=== PATIENT | female | born 1965 | race Caucasian/White ===

== ENCOUNTER 2023-08-03 18:24 | Inpatient (IN) | payer BC, MEDICARE, SELFPAY ==
--- NOTE | ~2023-08-03 | XR_ITS ---
EXAMINATION: XR CHEST CLINICAL INFORMATION: Chest pain COMPARISON: None available. TECHNIQUE: 2 views of the chest were obtained. FINDINGS: No significant abnormality is noted involving the heart, lungs, mediastinum, bony thorax or soft tissues. XR/XR chest 2V IMPRESSION: Unremarkable examination.
[2023-08-03 18:39] VITALS: BP 112/59; BP 115/58; PULSE 103; PULSE 98; RESP 20; TEMP 36.8; O2SAT 97; O2SAT 98; BMI 27.1
--- NOTE | 2023-08-03 18:39 | ECG_ITS ---
Test Reason : CHEST PAIN Blood Pressure : / mmHG Vent. Rate : 101 BPM Atrial Rate : 101 BPM P-R Int : 142 ms QRS Dur : 082 ms QT Int : 338 ms P-R-T Axes : 056 057 052 degrees QTc Int : 438 ms Sinus tachycardia Low voltage QRS Borderline ECG No previous ECGs available Referred By: Zoie Park Electronically Signed By:ABIGAIL CHAVEZ
--- NOTE | 2023-08-03 18:39 | ED_ITS ---
HPI - Chest Pain General Chief Complaint: Arrhythmia/Palpitations Stated Complaint: CHEST PAIN Time Seen by Provider: 08/03/23 18:25 Source: patient and EMS Mode of arrival: EMS Limitations: no limitations History of Present Illness HPI narrative: Patient is a 58-year-old female who presents to the emergency department via EMS for evaluation. She presents with her friend at bedside. Patient went out to dinner with her friend at approximately 17:00. Upon walking in the decided to sit at a high top table, once patient sat up on the stool, she reported feeling unwell; lightheadedness, dizziness, and feeling as though she was going to pass out. She was experiencing pain in her jaw described as a tightness. She reports that she ?got onto fast?. But she continued to have palpitations and her friend reported that she appeared very pale in color. Her friend placed her apple watch onto the patient's wrist, and reports that her heart rate was reading in the 230s. EMS was ultimately called, she was found to be in SVT, adenosine 6 mg intravenously was administered 4 pulse 230, with improvement down to 100. Currently she denies any physical complaints, she reports that she feels well and would like to be discharged home. She does have a past medical history of C4-C6 fracture with surgical repair in 2013 after a sledding accident, and 4 years ago she fell from an 8 ft scaffolding sustained a TBI, which has left her with the results in dysphasia, per patient and her friend her speech is currently at baseline. Related Data Allergies Allergy/AdvReac Type Severity Reaction Status Date / Time bee pollen [bee stings] Allergy Unknown Verified 08/03/23 18:44 Sulfa (Sulfonamide Allergy Unknown Verified 08/03/23 18:44 Antibiotics) Review of Systems 2 Review of Systems: Yes all other systems are reviewed and are negative COUNTS INCLUDE 234 BEDS AT THE [facility] Past Medical History Attestation statement: The following information was validated with the patient. Source: old records reviewed Medical History (Updated 08/04/23 @ 02:11 by Zoie Park CNP) PTSD (post-traumatic stress disorder) TBI (traumatic brain injury) Social History Social History Patient Tobacco Use Status: Former Tobacco user Smoked in Last 30 Days: No Use of substances other than those prescribed or required for medical reasons: No Advance Directives: No Advance Directives Information Provided: No Do you have a plan to hurt others: No Plan Physical Exam 2 Vital Signs: Vital Signs: Last Vital Signs Temp 97.7 F 08/04/23 01:29 Pulse 73 08/04/23 01:29 Resp 19 08/04/23 01:29 BP 109/57 L 08/04/23 01:29 Pulse Ox 99 08/04/23 01:29 O2 Del Method Room Air 08/04/23 01:29 BMI result Body Mass Index 27.1 Appearance: Alert.?Oriented to person, place and time. No acute distress.?Normal affect. Eyes: Pupils equal, round and reactive to light.? ENT: Pharynx normal.?? Neck: Normal inspection.? Neck supple.?? CVS: Heart sounds normal. Normal heart rate and rhythm.? Pulses normal.?? Respiratory: No respiratory distress.? Lung sounds clear to auscultation bilaterally?? Abdomen: Soft and non-tender. Normoactive bowel sounds. Skin: Skin warm and dry.? Normal skin color.? Extremities: No lower extremity edema.? No calf ttp? Neuro: Moves all extremities spontaneously. Sensation intact bilaterally. CN II- XII intact. No focal neuro deficits. Ambulates with normal steady gait. Course Reevaluation(s) Reevaluation #1: Received call from lab regarding critical troponin 229.6. I suspect that this is a demand elevation given episode of SVT. However Cardiology was consulted, spoke with Dr. Davis who recommends admission for observation. Patient was made aware of this recommendation. Accepted for admission by hospitalist, Dr. Alex Cruz to medicine service Time: 22:19 Medications Administered Generic Name Dose Route Start Last Admin Trade Name Freq PRN Reason Stop Dose Admin Sodium Chloride 3 ml 08/04/23 00:00 08/04/23 01:04 0.9 % Sodium Chloride Flush 3 Ml Syringe IVFLUSH Not Given QSHIFT [facility] Medical Decision Making Medical Decision Making [facility] Narrative: Patient is a 58-year-old female with past medical history of anxiety, PTSD cervical spine fracture, TBI presenting to emergency department for evaluation after presyncopal episode with palpitations jaw pain, found to be in SVT by EMS, for which adenosine 6 mg intravenously was administered with resolution and she returned back to a sinus rhythm. Currently she denies any physical complaints, she is requesting to be discharged home. She is amenable to having basic workup obtained. Her physical exam at this time is benign. Differential Diagnosis Differential Diagnoses: The differential diagnosis associated with the presentation includes (Tachyarrhythmia, SVT, WPW, ACS) Admission/Observation Consideration of admission/observation: Escalation of care including admission/observation considered (See narrative above in course narrative for further detail) Consult Healthcare Provider Management of the patient was discussed with: Hospitalist and Parks Recreation Coordinator Lab Data MDM Lab Attestation statement: I reviewed the patient's lab results. CBC reveals very mild leukopenia 4.6, hemoglobin 12.9 hematocrit 36.1, no thrombocytopenia. No evidence coagulopathy. No electrolyte derangement. No SOY. No evidence of acute CHF BNP within normal range. High sensitive troponin at a detectable level of 13.6 but within normal range. Urinalysis is without evidence of infection. Viral testing is negative. 08/03/23 19:10 08/03/23 19:10 Labs: Lab Results 08/03/23 08/03/23 08/03/23 Range/Units 19:10 19:11 19:26 WBC 4.6 L (4.8-10.8) X10*3/uL RBC 3.93 L (4.20-5.50) X10*6/uL Hgb 12.9 (12.0-16.0) g/dl Hct 36.1 L (37.0-47.0) % MCV 91.9 (80.0-98.0) fL MCH 32.8 (27.0-33.0) pg MCHC 35.7 H (31.0-35.0) g/dl RDW 12.0 (11.0-16.0) % Plt Count 243 (160-400) X10*3/uL MPV 8.5 L (9.4-12.3) fL Immature Gran % (Auto) 0.2 (0.0-0.4) % Neut % (Auto) 46.8 (45-73) % Lymph % (Auto) 44.3 H (20-40) % Warren % (Auto) 6.1 (2-11) % Eos % (Auto) 1.7 (0-4) % Baso % (Auto) 0.9 (0-2) % Lymph # (Auto) 2.0 (1.2-4.9) X10*3/uL Warren # (Auto) 0.3 (0.1-1.2) X10*3/uL Eos # (Auto) 0.1 (0.0-0.4) X10*3/uL Baso # (Auto) 0.0 (0.0-0.2) X10*3/uL Abs Immat Gran (auto) 0.01 (0.00-0.03) X10*3/uL Absolute Neuts (auto) 2.2 (2.0-8.3) x10*3/uL Absolute Nucleated RBC 0.000 (0.0-0.012) X10*3/uL Nucleated RBC % (auto) 0.0 (0.0-0.2) /100WBC PT 12.3 (11.1-13.3) SEC INR 1.0 (0.9-1.1) Sodium 138 (135-145) mmol/L Potassium 3.8 (3.3-5.1) mmol/L Chloride 104 (96-108) mmol/L Carbon Dioxide 20 L (22-29) mmol/L Anion Gap 18 (12-20) BUN 8 L (9-16) mg/dL Creatinine 0.81 (0.5-1.4) mg/dL Estim Creat Clear Calc 68.9 Estimated GFR > 60 Random Glucose 81 (60-115) mg/dL Calcium 9.6 (8.4-10.2) mg/dL Magnesium 1.8 (1.6-2.6) mg/dL Total Bilirubin 0.8 (0.0-1.0) mg/dL AST 20 (5-31) U/L ALT 13 (0-31) U/L Alkaline Phosphatase 57 (39-117) U/L Troponin I High Sens 13.6 (<3.5-17.0) ng/L B-Natriuretic Peptide 22 (<100) pg/mL Total Protein 6.6 (6.5-8.0) g/dL Albumin 3.9 (3.5-5.0) g/dL Lipase 43 (8-78) U/L TSH 1.97 (0.32-4.0) uIU/mL Urine Color Yellow Urine Appearance Clear Urine pH 7.0 (5.0-9.0) Ur Specific Bowie <= 1.005 (1.005-1.025) Urine Protein Negative (Neg-Trace) mg/dL Urine Glucose (UA) Negative (Negative) mg/dL Urine Ketones Negative (Negative) mg/dL Urine Blood Trace H (Negative) Urine Nitrite Negative (Negative) Ur Leukocyte Esterase Moderate (2+) H (Negative) Urine RBC 0-2 (0-2) /HPF Urine WBC 0-5 (0-5) /HPF Ur Squamous Epith Cells 0-2 (0-2) /HPF Urine Bacteria None Seen (None Seen) Hyaline Casts 0-2 (0-2) /LPF Urine Opiates Screen Not Detected (Not Detect) Ur Buprenorphine Scrn Not Detected (Not Detect) ng/mL Ur Oxycodone Screen Not Detected (Not Detect) ng/mL Urine Methadone Screen Not Detected (Not Detect) ng/mL Urine Fentanyl Screen Not Detected (Not Detect) Ur Barbiturates Screen Not Detected (Not Detect) Ur Phencyclidine Scrn Not Detected (Not Detect) Ur Amphetamines Screen Not Detected (Not Detect) U Benzodiazepines Scrn Not Detected (Not Detect) Urine Cocaine Screen Not Detected (Not Detect) U Marijuana (THC) Screen Not Detected (Not Detect) Influenza Type A (PCR) NEGATIVE (Negative) Influenza Type B (PCR) NEGATIVE (Negative) RSV RNA Qual (PCR) NEGATIVE (Negative) SARS-CoV-2 RNA (RT-PCR) NEGATIVE (Negative) 08/03/23 Range/Units 21:37 WBC (4.8-10.8) X10*3/uL RBC (4.20-5.50) X10*6/uL Hgb (12.0-16.0) g/dl Hct (37.0-47.0) % MCV (80.0-98.0) fL MCH (27.0-33.0) pg MCHC (31.0-35.0) g/dl RDW (11.0-16.0) % Plt Count (160-400) X10*3/uL MPV (9.4-12.3) fL Immature Gran % (Auto) (0.0-0.4) % Neut % (Auto) (45-73) % Lymph % (Auto) (20-40) % Warren % (Auto) (2-11) % Eos % (Auto) (0-4) % Baso % (Auto) (0-2) % Lymph # (Auto) (1.2-4.9) X10*3/uL Warren # (Auto) (0.1-1.2) X10*3/uL Eos # (Auto) (0.0-0.4) X10*3/uL Baso # (Auto) (0.0-0.2) X10*3/uL Abs Immat Gran (auto) (0.00-0.03) X10*3/uL Absolute Neuts (auto) (2.0-8.3) x10*3/uL Absolute Nucleated RBC (0.0-0.012) X10*3/uL Nucleated RBC % (auto) (0.0-0.2) /100WBC PT (11.1-13.3) SEC INR (0.9-1.1) Sodium (135-145) mmol/L Potassium (3.3-5.1) mmol/L Chloride (96-108) mmol/L Carbon Dioxide (22-29) mmol/L Anion Gap (12-20) BUN (9-16) mg/dL Creatinine (0.5-1.4) mg/dL Estim Creat Clear Calc Estimated GFR Random Glucose (60-115) mg/dL Calcium (8.4-10.2) mg/dL Magnesium (1.6-2.6) mg/dL Total Bilirubin (0.0-1.0) mg/dL AST (5-31) U/L ALT (0-31) U/L Alkaline Phosphatase (39-117) U/L Troponin I High Sens 229.6 H* D (<3.5-17.0) ng/L B-Natriuretic Peptide (<100) pg/mL Total Protein (6.5-8.0) g/dL Albumin (3.5-5.0) g/dL Lipase (8-78) U/L TSH (0.32-4.0) uIU/mL Urine Color Urine Appearance Urine pH (5.0-9.0) Ur Specific Bowie (1.005-1.025) Urine Protein (Neg-Trace) mg/dL Urine Glucose (UA) (Negative) mg/dL Urine Ketones (Negative) mg/dL Urine Blood (Negative) Urine Nitrite (Negative) Ur Leukocyte Esterase (Negative) Urine RBC (0-2) /HPF Urine WBC (0-5) /HPF Ur Squamous Epith Cells (0-2) /HPF Urine Bacteria (None Seen) Hyaline Casts (0-2) /LPF Urine Opiates Screen (Not Detect) Ur Buprenorphine Scrn (Not Detect) ng/mL Ur Oxycodone Screen (Not Detect) ng/mL Urine Methadone Screen (Not Detect) ng/mL Urine Fentanyl Screen (Not Detect) Ur Barbiturates Screen (Not Detect) Ur Phencyclidine Scrn (Not Detect) Ur Amphetamines Screen (Not Detect) U Benzodiazepines Scrn (Not Detect) Urine Cocaine Screen (Not Detect) U Marijuana (THC) Screen (Not Detect) Influenza Type A (PCR) (Negative) Influenza Type B (PCR) (Negative) RSV RNA Qual (PCR) (Negative) SARS-CoV-2 RNA (RT-PCR) (Negative) Independent Interpretation I performed an independent interpretation of an: EKG and Plain X-Ray (No infiltrates pleural effusion or pulmonary congestion) Interpretation: Rate: 101 Rhythm: Sinus tachycardia? Milton:? Normal Normal P waves.? Normal ELKIN.?? Normal QRS complex.?? ST T wave :??No ST elevation, no ST depression, no T-wave inversions qTC:438 prior studies:? None available for review The study has been interpreted contemporaneously by me. Radiology Impression Discussion of test interpretation with radiology: I have reviewed the radiologist's reading. Radiologist Impression: XR/XR chest 2V IMPRESSION: Unremarkable examination. Independent Historian Clinical information obtained from an independent historian. History obtained from or confirmed by: Friend (Present who assists with history as per HPI) and EMS Discharge Plan Discharge Clinical Impression: SVT (supraventricular tachycardia), Elevated troponin Patient Disposition: Admitted As Inpatient
[2023-08-03 19:14] LABS: MANUAL DIFF FLAG NO
[2023-08-03 19:22] LABS: Basophils Percent Auto 0.9 % (0-2); Eosinophils Absolute Auto 0.1 X10*3/uL (0.0-0.4); Eosinophils Percent Auto 1.7 % (0-4); Hematocrit 36.1 % (37.0-47.0); Hemoglobin 12.9 g/dl (12.0-16.0); Imm Gran Abs Auto 0.01 X10*3/uL (0.00-0.03); Imm Gran Pct Auto 0.2 % (0.0-0.4); Lymphocytes Percent Auto 44.3 % (20-40); Mean Corpuscular HGB Conc 35.7 g/dl (31.0-35.0); Mean Corpuscular Hemoglobin 32.8 pg (27.0-33.0); Mean Corpuscular Volume 91.9 fL (80.0-98.0); Mean Platelet Volume 8.5 fL (9.4-12.3); Monocytes Absolute Auto 0.3 X10*3/uL (0.1-1.2); Monocytes Percent Auto 6.1 % (2-11); Neutrophils Absolute Auto 2.2 x10*3/uL (2.0-8.3); Neutrophils Percent Auto 46.8 % (45-73); Platelet Count 243 X10*3/uL (160-400); Red Blood Count 3.93 X10*6/uL (4.20-5.50); White Blood Count 4.6 X10*3/uL (4.8-10.8)
[2023-08-03 19:23] VITALS: PULSE 102
[2023-08-03 19:23] LABS: Prothrombin Time 12.3 SEC (11.1-13.3)
--- NOTE | 2023-08-03 19:27 | PC.NURSE ---
Assumed care of the pt at 1900. Pt was assisted to wheelchair to go to the bathroom, pt provided a urine sample which was collected and sent to lab. Pt has no complaints at this time. Pt is on the field cane scaler helper with an 18g IV in place.
[2023-08-03 19:32] LABS: Alanine Aminotransferase 13 U/L (0-31); Albumin Level 3.9 g/dL (3.5-5.0); Alkaline Phosphatase 57 U/L (39-117); Anion Gap 18 (12-20); Aspartate Amino Transferase 20 U/L (5-31); Bilirubin Total 0.8 mg/dL (0.0-1.0); Blood Urea Nitrogen 8 mg/dL (9-16); Calcium 9.6 mg/dL (8.4-10.2); Carbon Dioxide 20 mmol/L (22-29); Chloride 104 mmol/L (96-108); Creatinine Clr Calc Pharmacy 68.9; Estimated Glomerular Filt Rate > 60; Glucose Random 81 mg/dL (60-115); Lipase 43 U/L (8-78); Magnesium 1.8 mg/dL (1.6-2.6); Potassium 3.8 mmol/L (3.3-5.1); Sodium 138 mmol/L (135-145); Total Protein 6.6 g/dL (6.5-8.0)
[2023-08-03 19:32] LABS: Appearance Urine Clear; Color Urine Yellow; Glucose Urine UA Negative (Negative); Leukocyte Esterase Urine Moderate (2+) (Negative); Nitrite Urine Negative (Negative); Specific Gravity - Urine <= 1.005 (1.005-1.025); UMIC TRIGGER UACC YES; Urine Blood Trace (Negative); Urine Ketones Negative (Negative); Urine Protein Negative (Neg-Trace)
[2023-08-03 19:40] LABS: Troponin-I High Sensitivity 13.6 ng/L (<3.5-17.0)
[2023-08-03 19:51] VITALS: PULSE 101; RESP 109; TEMP 36.8; O2SAT 99
[2023-08-03 19:52] LABS: Influenza A PCR NEGATIVE (Negative); Influenza B PCR NEGATIVE (Negative); Resp Syncy Virus RNA Qual PCR NEGATIVE (Negative); SARS COV2 PCR INHOUSE NEGATIVE (Negative)
[2023-08-03 20:02] LABS: B Type Natriuretic Peptide 22 pg/mL (<100)
[2023-08-03 20:06] LABS: Bacteria Urine None Seen (None Seen); Hyaline Casts Urine 0-2 /LPF (0-2); RBC Urine 0-2 /HPF (0-2); Squamous Epithelial Cell Urine 0-2 /HPF (0-2); WBC Urine 0-5 /HPF (0-5)
--- OUTSIDE RECORDS SUMMARY | 2023-08-03 20:24 | XMS_ITS | Continuity of Care Document ---
Author Organization [facility] Address [address] [place] [address]- Care Team Providers Care Photo Tube Assembler Name Role Phone Mookie Rivera DO Primary Care Physician [phone] Encounter [facility] Date(s): 10/17/19 - 12/07/19 [facility] [address] [place] [address]- [facility] Attending Physician: Michael ARREAGA, Darrius Galo Referring Physician: Mookie Rivera DO Allergies, Adverse Reactions, Alerts Substance Reaction Severity Status sulfa drugs Active Bee Stings Active Immunizations Given and Recorded Vaccine Date Status Refusal Reason tetanus/diphtheria/pertussis, acel(Tdap) 09/23/19 Given Medications BuPROpion By Mouth, 0 Refills, Maintenance, 07/08/17 10:02:53 EDT Start Date: 07/08/17 Status: Ordered Tramadol By Mouth, 0 Refills, Maintenance, 07/08/17 10:02:21 EDT Start Date: 07/08/17 Status: Ordered Xanax 0.25 mg oral tablet 0.25 mg, 1, tablet, By Mouth, 3 times a day, PRN, Refills 0, Maintenance, for anxiety, 07/08/17 10:02:32 EDT Start Date: 07/08/17 Status: Ordered Zofran 4 mg oral tablet 1 tablet = 4 mg, By Mouth, Every 8 hours, # 12 tablet, 0 Refills, Maintenance, 09/23/19 22:41:00 EDT, Tablet, [id number] Start Date: 09/23/19 Status: Ordered
--- OUTSIDE RECORDS SUMMARY | 2023-08-03 20:24 | XMS_ITS | Continuity of Care Document ---
Author Organization [facility] Address [address] [place] [address]- Care Team Providers Care Mirror Silverer Name Role Phone Mookie Rievra DO Graciela Primary Care Physician Encounter [facility] Date(s): 10/07/19 - 11/06/19 [facility] [address] [place] [address]- [facility] Allergies, Adverse Reactions, Alerts Substance Reaction Severity [...]
--- OUTSIDE RECORDS SUMMARY | 2023-08-03 20:24 | XMS_ITS | Continuity of Care Document ---
Author Organization [facility] Address [address] [place] [address]- Care Team Providers Care Cost Recovery Technician Name Role Phone Mookie Rivera DO Primary Care Physician Encounter [facility] Date(s): 10/16/19 - 12/21/19 [facility] [address] [place] [address]- [facility] Attending Physician: Blanca Ramirez Referring Physician: Mookie Rivera DO Allergies, Adverse [...]
--- OUTSIDE RECORDS SUMMARY | 2023-08-03 20:24 | XMS_ITS | Continuity of Care Document ---
Author Organization [facility] Address [address] [place] [address]- Care Team Providers Care Multi Share Program Coordinator Name Role Phone Mookie Rivera DO Primary Care Physician [place] [facility] [place](s[place] 10/17/19 - 12/21/19 [facility] [address] [place] [address]- [facility] Attending Physician: Blanca Ramirez Referring Physician: Mookie [...]
--- OUTSIDE RECORDS SUMMARY | 2023-08-03 20:24 | XMS_ITS | Continuity of Care Document ---
Author Organization [facility] Address [address] [place] [address]- Care Team Providers Care Cook Sauce Name Role Phone Miguel MEDEROS Mookie Owens Primary Care Physician Encounter [facility] Date(s): 11/21/19 - 12/21/19 [facility] [address] [place] [address]- [facility] Attending Physician: Dorian Rivas Admitting Physician: AdmtrDorian Referring Physician: AdmtrDorian Allergies, Adverse Reactions, Alerts Substance Reaction Severity [...]
--- OUTSIDE RECORDS SUMMARY | 2023-08-03 20:24 | XMS_ITS | Continuity of Care Document ---
Author Organization [facility] Address [address] [place] [address]- Care Team Providers Care Welder Production Line Gas Name Role Phone Miguel MEDEROS Mookie Owens Primary Care Physician [phone] Encounter [facility] Date(s): 10/17/19 - 11/16/19 [facility] [address] [place] [address]- [facility] Allergies, Adverse Reactions, Alerts Substance Reaction Severity [...]
--- OUTSIDE RECORDS SUMMARY | 2023-08-03 20:24 | XMS_ITS | Continuity of Care Document ---
Author Organization [facility] Address [address] [place] [address]- Care Team Providers Care Cathead Worker Name Role Phone Mookie Rivera DO Graciela Primary Care Physician Encounter [facility] Date(s): 09/23/19 - 09/24/[address] [address] [facility] Encounter Diagnosis Closed head injury(Final) - 09/24/19 Elbow laceration(Final) - 09/24/19 Discharge Disposition: A-D/C Home Attending Physician: Rohit Allan MD Admitting Physician: Rohit Allan MD Referring Physician: Not on Staff, Referring MD Allergies, Adverse Reactions, Alerts Substance Reaction Severity [...] [id number] Start Date: 09/23/19 Status: Ordered Results Radiology Reports * Exam Date Time Procedure Performing Provider Status 09/23/19 6:54 PM Elbow Min 3 Views Left Gopi Dow; Auth (Verified) Notes: (Elbow Min 3 Views Left) Reason For Exam: Trauma RESULT: Elbow Min 3 Views Left Elbow Min 3 Views Left, 3 views Reason: Trauma; Clinical Question(s): Fracture; Hx of Present Illness: Patient was at work when shefell backwards off a ladder, approx 10-12 feet, + LOC. COMPARISON: None. FINDINGS: No fracture or dislocation. No arthritic changes. No joint effusion. IMPRESSION: No acute osseous injury identified. WSN: [id number] Ordering Physician: Chet Negron Dictated By: Brandon Guan MD Dictated Date/Time: 09/23/19 7:01 pm Reviewed By: Brandon Guan MD Signed By: Brandon Guan MD Signed Date/Time: 09/23/19 7:01 pm Transcribed By: CSB Transcribed Date/Time: 09/23/19 7:00 pm * Exam Date Time Procedure Performing Provider Status 09/23/19 6:54 PM Elbow Min 3 Views Right Gopi Dow; Auth (Verified) Notes: (Elbow Min 3 Views Right) Reason For Exam: Trauma RESULT: Elbow Min 3 Views Right Elbow Min 3 Views Right, 3 views Trauma; Clinical Question(s): Fracture; Hx of Present Illness: Patient was at work when she fell backwards off a ladder, approx 10-12 feet, + LOC COMPARISON: None. FINDINGS: No fracture or dislocation. No joint effusion. IMPRESSION: No acute osseous injury identified. WSN: [id number] Ordering Physician: Chet Negron Dictated By: Brandon Guan MD Dictated Date/Time: 09/23/19 7:00 pm Reviewed By: Brandon Guan MD Signed By: Brandon Guan MD Signed Date/Time: 09/23/19 7:00 pm Transcribed By: CSB Transcribed Date/Time: 09/23/19 6:58 pm * Exam Date Time Procedure Performing Provider Status 09/23/19 6:54 PM Wrist Comp Min 3 Views Right Gopi Dow; Auth (Verified) Notes: (Wrist Comp Min 3 Views Right) Reason For Exam: Trauma RESULT: Wrist Comp Min 3 Views Right Wrist Comp Min 3 Views Right Refer to EMR; Reason: Trauma; Clinical Question(s): Fracture; Hx of Present Illness: Patient was atwork when she fell backwards off a ladder, approx 10-12 feet, + LOC. COMPARISON: None. FINDINGS: No fracture or dislocation. No arthritic change. Normal carpal configuration. Intact radial and ulnar styloid processes. Normal soft tissues. IMPRESSION: Normal. WSN: [id number] Ordering Physician: Chet Negron Dictated By: Brandon Guan MD Dictated Date/Time: 09/23/19 6:58 pm Reviewed By: Brandon Guan MD Signed By: Brandon Guan MD Signed Date/Time: 09/23/19 6:58 pm Transcribed By: EVGENY Transcribed Date/Time: 09/23/19 6:58 pm Vital Signs Most recent to oldest [Reference Range]: 1 2 3 Oxygen Saturation [94-100 %] 100 % (09/23/19 11:13 PM) 100 % (09/23/19 8:10 PM) 100 % (09/23/19 5:35 PM) Pulse Rate [55-90 bpm] 83 bpm (09/23/19 11:13 PM) 87 bpm (09/23/19 8:10 PM) 91 bpm *H* (09/23/19 5:35 PM) Blood Pressure [90-138/55-84 mm Hg] 116/58mm Hg (09/23/19 11:13 PM) 127/78mm Hg (09/23/19 8:10 PM) 129/73mm Hg (09/23/19 5:35 PM) Respiratory Rate [16-30 br/min] 18 br/min (09/23/19 11:13 PM) 17 br/min (09/23/19 8:10 PM) 13 br/min *L* (09/23/19 5:35 PM) Temperature [96.8-100.4 DegF] 97.9 DegF (09/23/19 11:13 PM) 98.3 DegF (09/23/19 5:35 PM) Mode of Delivery (Oxygen) Room air (09/23/19 11:13 PM) Room air (09/23/19 8:10 PM) Room air (09/23/19 5:35 PM) Blood pressure sites Arm, left (09/23/19 11:13 PM) Arm, left (09/23/19 8:10 PM) Arm, left (09/23/19 5:35 PM) Temperature Route Oral (09/23/19 11:13 PM) Oral (09/23/19 5:35 PM)
--- OUTSIDE RECORDS SUMMARY | 2023-08-03 20:24 | XMS_ITS | Continuity of Care Document ---
Author Organization [facility] Address [address] [place] [address]- Care Team Providers Care Carpenter Inspector Name Role Phone Miguel MEDEROS Mookie Owens Primary Care Physician [phone] Encounter [facility] Date(s): 10/29/19 - 11/28/19 [facility] [address] [place] [address]- [facility] Allergies, Adverse Reactions, Alerts Substance Reaction [...]
--- OUTSIDE RECORDS SUMMARY | 2023-08-03 20:24 | XMS_ITS | Continuity of Care Document ---
Author Organization [facility] Address [address] [place] [address]- Care Team Providers Care Bug Trimmer Name Role Phone Mookie Rivera DO Graciela Primary Care Physician [phone] Encounter [facility] Date(s): 10/16/19 - 11/15/19 [facility] [address] [place] [address]- [facility] Attending Physician: Dorian Rivas Admitting Physician: Dorian Rivas Referring Physician: AdmtrDorian Allergies, Adverse Reactions, Alerts [...]
[2023-08-03 22:09] LABS: Troponin-I High Sensitivity 229.6 ng/L (<3.5-17.0)
--- NOTE | 2023-08-03 23:56 | P.HPHOSP_ITS ---
History of Present Illness Date of Service: 08/03/23 Attending physician on admission: Marzena Cruz Chief Complaint: Palpitations Tiffany Damon is a 58 years old woman with PMHx significant for TBI and residual speech difficulty was brought to the emergency department via ambulance after she started to experience dizziness and palpitations while she was having dinner at a restaurant. Patient felt like she was about to pass out and was having pain to jaw. Her friend who was at bedside provided most of the HPI and stated that when the ambulance came the patient looks quite pale. Apple watch was showing that her heart rate was very. EMS found her to have marked tachycardia consistent with SVT. Vasovagal maneuvers were attempted without success. Subsequently she received treatment with adenosine 6 mg IV X1. After receiving treatment with adenosine her heart rate came back to normal sinus rhythm. On evaluation the patient was asymptomatic. Denied any gastrointestinal or genitourinary symptoms. Prior to symptoms the patient had couple of sips of alcoholic beverage. Patient denies history of cardiac arrhythmia or heart disease. In the ED, she was found to have normal vital signs. Blood workup showed WBC of 4.6. Platelets and hemoglobin are normal. There are no significant electrolyte imbalances. Troponin increased from 13.6 to 229.6. BNP is 22. TSH is not available. Viral testing is negative for influenza, RSV and COVID-19. CXR is negative. ECG at 16:57 shows sinus tachycardia with a heart rate of 101 bpm without ischemic changes. ED tx: None. Review of Systems 2 Review of Systems: All 12 systems were reviewed and normal except as noted in HPI. [facility] Medical History (Updated 08/04/23 @ 00:40 by Marzena Cruz MD) PTSD (post-traumatic stress disorder) TBI (traumatic brain injury) Social History Patient Tobacco Use Status: Former Tobacco user Smoked in Last 30 Days: No Use of substances other than those prescribed or required for medical reasons: No Advance Directives: No Advance Directives Information Provided: No Do you have a plan to hurt others: No Plan Meds Allergies Allergy/AdvReac Type Severity Reaction Status Date / Time bee pollen [bee stings] Allergy Unknown Verified 08/03/23 18:44 Sulfa (Sulfonamide Allergy Unknown Verified 08/03/23 18:44 Antibiotics) Active Medications: Current Medications Acetaminophen (Acetaminophen 325 Mg Tablet) 975 mg PO Q6H PRN PRN Reason: Pain, Mild (Pain Scale 1-3) Sodium Chloride (0.9 % Sodium Chloride Flush 3 Ml Syringe) 3 ml IVFLUSH QSHIFT [facility] Physical Exam 2 Vital Signs and Narrative: Vital Signs: Last Vital Signs Temp 98.2 F 08/03/23 19:51 Pulse 101 H 08/03/23 19:51 Resp 109 H 08/03/23 19:51 BP 115/58 L 08/03/23 18:39 Pulse Ox 99 08/03/23 19:51 O2 Del Method Room Air 08/03/23 19:51 BMI result Body Mass Index 27.1 Constitutional - Awake and Alert, No apparent distress. Afebrile. HEENT - Normocephalic. Heart - RRR. No murmur. Lungs - Normal lung expansion, Normal respiratory effort, No respiratory distress, CTA bilaterally Abdomen - Nontenderness. Musculoskeletal - Normal inspection, normal ROM Skin - Warm/Dry Neurological - Alert & oriented x3. No focal weakness grossly noted. Dysarthria. Psychological - Appropriate affect Results Labs 08/03/23 19:10 08/03/23 19:10 Labs: Laboratory Results - last 24 hr 08/03/23 08/03/23 08/03/23 19:10 19:11 19:26 MCV 91.9 MCH 32.8 MCHC 35.7 H RDW 12.0 Plt Count 243 MPV 8.5 L Immature Gran % (Auto) 0.2 Neut % (Auto) 46.8 Lymph % (Auto) 44.3 H Walton % (Auto) 6.1 Eos % (Auto) 1.7 Baso % (Auto) 0.9 Lymph # (Auto) 2.0 Walton # (Auto) 0.3 Eos # (Auto) 0.1 Baso # (Auto) 0.0 Abs Immat Gran (auto) 0.01 Absolute Neuts (auto) 2.2 Absolute Nucleated RBC 0.000 Nucleated RBC % (auto) 0.0 PT 12.3 INR 1.0 Anion Gap 18 Estim Creat Clear Calc 68.9 Estimated GFR > 60 Random Glucose 81 Calcium 9.6 Magnesium 1.8 Total Bilirubin 0.8 AST 20 ALT 13 Alkaline Phosphatase 57 Troponin I High Sens 13.6 B-Natriuretic Peptide 22 Total Protein 6.6 Albumin 3.9 Lipase 43 Urine Color Yellow Urine Appearance Clear Urine pH 7.0 Ur Specific Holmen <= 1.005 Urine Protein Negative Urine Glucose (UA) Negative Urine Ketones Negative Urine Blood Trace H Urine Nitrite Negative Ur Leukocyte Esterase Moderate (2+) H Urine RBC 0-2 Urine WBC 0-5 Ur Squamous Epith Cells 0-2 Urine Bacteria None Seen Hyaline Casts 0-2 Influenza Type A (PCR) NEGATIVE Influenza Type B (PCR) NEGATIVE RSV RNA Qual (PCR) NEGATIVE SARS-CoV-2 RNA (RT-PCR) NEGATIVE 08/03/23 21:37 MCV MCH MCHC RDW Plt Count MPV Immature Gran % (Auto) Neut % (Auto) Lymph % (Auto) Walton % (Auto) Eos % (Auto) Baso % (Auto) Lymph # (Auto) Walton # (Auto) Eos # (Auto) Baso # (Auto) Abs Immat Gran (auto) Absolute Neuts (auto) Absolute Nucleated RBC Nucleated RBC % (auto) PT INR Anion Gap Estim Creat Clear Calc Estimated GFR Random Glucose Calcium Magnesium Total Bilirubin AST ALT Alkaline Phosphatase Troponin I High Sens 229.6 H* D B-Natriuretic Peptide Total Protein Albumin Lipase Urine Color Urine Appearance Urine pH Ur Specific Holmen Urine Protein Urine Glucose (UA) Urine Ketones Urine Blood Urine Nitrite Ur Leukocyte Esterase Urine RBC Urine WBC Ur Squamous Epith Cells Urine Bacteria Hyaline Casts Influenza Type A (PCR) Influenza Type B (PCR) RSV RNA Qual (PCR) SARS-CoV-2 RNA (RT-PCR) Imaging Radiologist's Impressions: Impressions Chest X-Ray 08/03/23 19:46 IMPRESSION: Unremarkable examination. Assessment and Plan (1) SVT (supraventricular tachycardia): Status: Acute (2) Elevated troponin: Status: Acute Plan Tiffany Damon is a 58 years old woman with PMHx significant for TBI and residual speech difficulty presents with: * s/p SVT, resolved (adenosine 6 mg IV X1 by EMS). Keeping observation. Recheck troponin. Check TSH. Echocardiogram to assess for structural heart abnormalities. Cardiology consult for further recommendation. * Elevated troponin, possible demand ischemia secondary to tachycardia. Continue to monitor. Check TTE. * PTSD. Continue home medications. Quality Stroke Does the patient have a stroke diagnosis?: No VTE Prior VTE?: No VTE Risk Level:: Medical - low VTE Device Contraindication: N/A - Device Ordered VTE Drug Contraindication: Treatment Not Indicated
[2023-08-04] VITALS (7 sets, daily range): BP systolic 109–136; BP diastolic 57–71; PULSE 62–75; RESP 12–20; TEMP 36.4–37.1; O2SAT 97–100; BMI 27.0
[2023-08-04 00:32] LABS: Thyroid Stimulating Hormone 1.97 uIU/mL (0.32-4.0)
[2023-08-04 01:02] LABS: Amphetamine Screen Urine Not Detected (Not Detect); Barbiturates, Urine Not Detected (Not Detect); Benzodiazepines Screen Urine Not Detected (Not Detect); Buprenorphine Scr Not Detected (Not Detect); Cannabinoid Screen Urine Not Detected (Not Detect); Cocaine Screen Urine Not Detected (Not Detect); Fentanyl, urine Not Detected (Not Detect); Methadone Screen, Urine Not Detected (Not Detect); Opiate Screen Urine Not Detected (Not Detect); Oxycodone Screen Urine Not Detected (Not Detect); Phencyclidine Screen Urine Not Detected (Not Detect)
[2023-08-04 04:11] LABS: Troponin-I High Sensitivity 357.4 ng/L (<3.5-17.0)
[2023-08-04] MEDS: Melatonin 3 MG TABLET 6 MG PO (05:22)
[2023-08-04] MEDS: Atorvastatin Calcium 10 MG TABLET PO (05:22)
[2023-08-04 05:34] LABS: Basophils Percent Auto 0.6 % (0-2); Eosinophils Absolute Auto 0.1 X10*3/uL (0.0-0.4); Hematocrit 37.7 % (37.0-47.0); Hemoglobin 13.1 g/dl (12.0-16.0); Lymphocytes Absolute Auto 2.4 X10*3/uL (1.2-4.9); Lymphocytes Percent Auto 48.2 % (20-40); MANUAL DIFF FLAG NO; Mean Corpuscular HGB Conc 34.7 g/dl (31.0-35.0); Mean Corpuscular Hemoglobin 32.3 pg (27.0-33.0); Mean Corpuscular Volume 93.1 fL (80.0-98.0); Mean Platelet Volume 8.6 fL (9.4-12.3); Monocytes Absolute Auto 0.4 X10*3/uL (0.1-1.2); Monocytes Percent Auto 7.1 % (2-11); Neutrophils Absolute Auto 2.1 x10*3/uL (2.0-8.3); Neutrophils Percent Auto 42.1 % (45-73); Platelet Count 249 X10*3/uL (160-400); Red Blood Count 4.05 X10*6/uL (4.20-5.50); Red Cell Distribution Width 11.9 % (11.0-16.0)
[2023-08-04 05:50] LABS: Anion Gap 14 (12-20); Blood Urea Nitrogen 10 mg/dL (9-16); Calcium 9.4 mg/dL (8.4-10.2); Carbon Dioxide 24 mmol/L (22-29); Chloride 104 mmol/L (96-108); Creatinine Clr Calc Pharmacy 69.8; Estimated Glomerular Filt Rate > 60; Glucose Random 86 mg/dL (60-115); Potassium 3.7 mmol/L (3.3-5.1); Sodium 138 mmol/L (135-145)
--- NOTE | 2023-08-04 07:00 | CA_ITS ---
Transthoracic Echocardiogram Patient (Last, First, Middle): Tiffany Damon, Gender: Female Date of : 1965 Age: 58 Procedure Date: 08/04/2023 Procedure Type: Transthoracic Echocardiogram Location: ER Height: 157.48 cm Weight: 67.13 kg BSA: 1.68 m2 Heart Rate: 76 bpm BP: 123 / 68 mmHg Cooking Chef: Referring MD: Marzena Cruz MD Symptoms: SVT Study Quality: Adequate ECG Rhythm: Sinus Conclusions: - The left ventricular systolic function is normal. The visually estimated ejection fraction is between 65-70%. - The basal inferolateral segment is akinetic. - No obvious valvular pathology seen on this study. Findings Procedure Information Contrast agent, definity, is being given per protocol without apparent complications. Left Ventricle Normal left ventricular cavity size. There is normal left ventricular wall thickness. The left ventricular systolic function is normal. The visually estimated ejection fraction is between 65-70%. Diastolic function is normal for age. Wall Motion Rest Echo Findings The basal inferolateral segment is akinetic. Right Ventricle Normal right ventricular cavity size and systolic function. Atria Both atria are normal in size. Aortic Valve There is a normal trileaflet aortic valve. There is no aortic valve stenosis. There is no aortic valve regurgitation. Mitral Valve The mitral valve appears normal. There is trace mitral valve regurgitation. There is no mitral valve stenosis. Pulmonic Valve The pulmonic valve is likely normal. Tricuspid Valve Normal tricuspid valve structure. There is mild tricuspid valve regurgitation. There is no evidence of pulmonary hypertension. Great Vessels The asc aorta is normal in size. Venous The inferior vena cava is normal in size and collapses greater than 50% with inspiration. Pericardium/Pleural There is a trivial pericardial effusion. Prior Study Comparison No prior study available for comparison. Recommendations, Care & Conclusions No obvious valvular pathology seen on this study. Measurements 2D Linear Measurements IVSd: 0.78 0.6-0.9/0.6-1.0 cm LVIDd: 4.04 3.9-5.3/4.2-5.9 cm LVIDd Index: 2.40 2.4-3.2/2.2-3.1 cm/m2 LVIDs: 2.59 2.0-3.6 cm LVPWd: 1.04 0.7-1.1 cm LA Diam: 3.40 2.7-3.8/3.0-4.0 cm LAIDs Index: 2.02 1.5-2.3 cm/m2 LV Mass: 140.70 67-162/88-224 g LV Mass Index: 83.75 43-95/49-115 g/m2 LVOT Diam: 2.10 3.0+(-)1.3 cm 2D Systolic Function EF 4C: 77.00 >55% EF 2C: 67.40 >55% EF BiP: 72.00 >55% Mitral Valve MV Pk E: 0.78 MV PK A: 0.99 MV Decel Time: 160.00 E/A: 0.80 E'Lateral: 8.92 E'Medial: 7.18 E/E' Med: 10.80 E/E' Lat: 8.70 PHT: 47.00 MVA PHT: 4.68 Decel Cambria: 4.86 Aortic Valve AoV Pk Anupam: 1.41 AoV Mn Anupam: 0.89 AoV VTI: 0.28 AoV Pk Grad: 8.00 Aov Mn Grad: 4.00 HEIKE Cont.VTI: 2.54 LVOT LVOT Pk Anupam: 0.94 LVOT Mn Anupam: 0.58 LVOT VTI: 0.21 LVOT Pk Grad: 4.00 LVOT Mn Grad: 2.00 LVOT Diam: 2.10 LVOT Area: 3.46 Diastolic Function MV Pk E: 0.78 MV Pk A: 0.99 E/A: 0.80 E'Medial: 7.18 E/E' Med: 10.80 E' Laterial: 8.92 E/E' Lat: 8.70 Right Ventricle TAPSE (mm): 26.30 TVS' Anupam: 17.10 Tricuspid Valve TR Pk Anupam: 1.67 TR Pk Grad: 11.00 RA Press: 3.00 RVSP: 14.00 Great Vessels Aorta Sinus of Valsalva: 3.20 2.0-3.5 cm Ao Asc: 2.80 2.1-3.4 cm Pulmonary Valve PV Pk Anupam: 1.03 Peak PV Grad: 4.00 Updated in Other Vendor System with Status of Final Donte Davis MD electronically signed on 08/04/2023 10:02:51 AM with status of Final
--- NOTE | 2023-08-04 08:54 | PHA.MEDREC ---
Pharmacy Consult ? Medication Reconciliation Pharmacy has completed the medication reconciliation. Patient was non verbal with me and wrote her responses on a notepad. She wrote that she lives in [place]. Called [facility] to obtain medication doses and frequencies, patient only gave me the medication names.
--- NOTE | 2023-08-04 09:05 | PC.NURSE ---
repeat trop obtained/sent to lab. pt having echocardiogram completed at this time. family bedside. plan of care ongoing.
--- NOTE | 2023-08-04 09:40 | PM.CNCAR ---
History of Present Illness History of Present Illness Date of Service: 08/04/23 Chief complaint: SVT Narrative: This is a cardiology consultation regarding SVT as well as elevated troponins. Patient does not have any known cardiac history. No history of any coronary disease or myocardial infarction or cardiomyopathy. EMS documentation including the EKGs were reviewed. She patient has a history of TBI/speech impairment. She had complained of chest pain/6/10, dizziness per EMS note. Then they did an EKG and that showed SVT at a rate of around 235/Min. They attempted to vagal maneuvers but unsuccessful. Then the obtain IV access and gave 6 mg of IV adenosine. Then patient had conversion to sinus rhythm. She was not sinus tachycardia. Apparently pulse was too weak that they could not obtain a blood pressure. Then she was brought to the ER for further evaluation. Troponins were checked and they were elevated. Hence we are consulted. Currently she states she feels okay. Back to normal self. Review of Systems Review of Systems: Yes all other systems are reviewed and are negative Constitutional: Constitutional: Reports as per HPI and Reports no additional constitutional complaints Eyes: Eyes: Reports as per HPI and Denies no additional eye complaints ENT: Denies system reviewed and no additional complaints, except as documented and Reports as per HPI Cardiovascular: Cardiovascular: Reports as per HPI, Reports no additional cardiovascular complaints, Denies acrocyanosis, Denies cool extremities, Denies chest pain, Denies leg edema, Denies lightheadedness, Denies palpitations and Denies dyspnea Respiratory: Respiratory: Reports as per HPI, Denies no additional respiratory complaints and Denies dyspnea Gastrointestinal: Gastrointestinal: Reports as per HPI and Denies no additional gastrointestinal complaints Genitourinary: Genitourinary: Reports as per HPI Musculoskeletal: Musculoskeletal: Reports no additional musculoskeletal complaints and Reports as per HPI Integumentary/Breasts: Skin/Breast: Reports system reviewed and no additional complaints, except as docu Neurologic: Reports system reviewed and no additional complaints, except as documented and Reports as per HPI Psychiatric: Psychiatric: Reports no additional psychiatric complaints and Reports as per HPI Endocrine: Endocrine: Reports no additional endocrine complaints, Reports as per HPI and Denies palpitations Hematologic/Lymphatic: Hematologic/Lymphatic: Reports no additional hematologic/lymphatic complaints and Reports as per HPI Allergic/Immunologic: Allergic/Immunologic: Reports no additional allergic/immunologic complaints and Reports as per HPI [facility] Past Medical History Medical History (Updated 08/04/23 @ 09:44 by Donte Davis MD) PTSD (post-traumatic stress disorder) TBI (traumatic brain injury) Family History Family History (Updated 08/04/23 @ 09:42 by Donte Davis MD) Father Lymphoma Mother Alzheimer disease Social History Social History Patient Tobacco Use Status: Former Tobacco user Smoked in Last 30 Days: No Use of substances other than those prescribed or required for medical reasons: No Advance Directives: No Advance Directives Information Provided: No Do you have a plan to hurt others: No Plan Meds Allergies Allergy/AdvReac Type Severity Reaction Status Date / Time bee pollen [bee stings] Allergy Unknown Verified 08/03/23 18:44 Sulfa (Sulfonamide Allergy Unknown Verified 08/03/23 18:44 Antibiotics) Active Medications: Current Medications Acetaminophen (Acetaminophen 325 Mg Tablet) 975 mg PO Q6H PRN PRN Reason: Pain, Mild (Pain Scale 1-3) Atorvastatin Calcium (Atorvastatin Calcium 10 Mg Tablet) 10 mg PO BEDTIME [facility] Last Admin: 08/04/23 05:22 Dose: 10 mg Melatonin (Melatonin 3 Mg Tablet) 6 mg PO BEDTIME PRN PRN Reason: Insomnia Last Admin: 08/04/23 05:22 Dose: 6 mg Sodium Chloride (0.9 % Sodium Chloride Flush 3 Ml Syringe) 3 ml IVFLUSH [facility] Last Admin: 08/04/23 07:40 Dose: Not Given Home Medications ?Medication ?Instructions ?Recorded ?Confirmed ?Last Taken ?Type alprazolam 0.25 mg disintegrating 0.25 mg PO DAILY PRN Anxiety 08/04/23 08/04/23 Unknown History tablet atorvastatin 10 mg tablet 10 mg PO DAILY 08/04/23 08/04/23 Unknown History bupropion HCl 300 mg 24 hr tablet, 300 mg PO DAILY 08/04/23 08/04/23 Unknown History extended release escitalopram oxalate 20 mg tablet 20 mg PO DAILY 08/04/23 08/04/23 Unknown History tramadol 50 mg tablet 50 mg PO BID PRN Moderate Pain 08/04/23 08/04/23 Unknown History (Scale Score 5-6) Physical Exam Vital Signs: Vital Signs: Last Vital Signs Temp 97.6 F 08/04/23 05:17 Pulse 68 05/03/24 05:17 Resp 12 08/04/23 05:17 BP 123/68 08/04/23 05:17 Pulse Ox 99 08/04/23 05:17 O2 Del Method Room Air 08/04/23 05:17 BMI result Body Mass Index 27.1 Const: General: comfortable and no acute distress Orientation/consciousness: patient oriented x3 HEENT: Other: Unremarkable Head: Yes normal to inspection Neck: Neck: Yes normal visual inspection Chest: Chest palpation & inspection: normal inspection of the chest Resp: Auscultation: clear to auscultation bilaterally Cardio: Palpation: normal PMI Heart sounds: S1 normal heart sound present, S2 normal heart sound present, no gallops, no murmurs and no rubs GI: Palpation (GI): Soft to palpation Back/Spine/Pelvis: Other: unremarkable Skin: General skin exam: no rashes or lesions noted Neuro: General: patient oriented x3 Extrem: General: Yes normal to inspection Psych: Mental Status: mental status grossly normal Objective Labs and Meds 08/04/23 05:29 08/04/23 05:29 Lab results: Laboratory Results - last 24 hr 08/03/23 08/03/23 08/03/23 19:10 19:11 19:26 WBC 4.6 L RBC 3.93 L Hgb 12.9 Hct 36.1 L MCV 91.9 MCH 32.8 MCHC 35.7 H RDW 12.0 Plt Count 243 MPV 8.5 L Immature Gran % (Auto) 0.2 Neut % (Auto) 46.8 Lymph % (Auto) 44.3 H Bradford % (Auto) 6.1 Eos % (Auto) 1.7 Baso % (Auto) 0.9 Lymph # (Auto) 2.0 Bradford # (Auto) 0.3 Eos # (Auto) 0.1 Baso # (Auto) 0.0 Abs Immat Gran (auto) 0.01 Absolute Neuts (auto) 2.2 Absolute Nucleated RBC 0.000 Nucleated RBC % (auto) 0.0 PT 12.3 INR 1.0 Sodium 138 Potassium 3.8 Chloride 104 Carbon Dioxide 20 L Anion Gap 18 BUN 8 L Creatinine 0.81 Estim Creat Clear Calc 68.9 Estimated GFR > 60 Random Glucose 81 Calcium 9.6 Magnesium 1.8 Total Bilirubin 0.8 AST 20 ALT 13 Alkaline Phosphatase 57 Troponin I High Sens 13.6 B-Natriuretic Peptide 22 Total Protein 6.6 Albumin 3.9 Lipase 43 TSH 1.97 Urine Color Yellow Urine Appearance Clear Urine pH 7.0 Ur Specific Lyons <= 1.005 Urine Protein Negative Urine Glucose (UA) Negative Urine Ketones Negative Urine Blood Trace H Urine Nitrite Negative Ur Leukocyte Esterase Moderate (2+) H Urine RBC 0-2 Urine WBC 0-5 Ur Squamous Epith Cells 0-2 Urine Bacteria None Seen Hyaline Casts 0-2 Urine Opiates Screen Not Detected Ur Buprenorphine Scrn Not Detected Ur Oxycodone Screen Not Detected Urine Methadone Screen Not Detected Urine Fentanyl Screen Not Detected Ur Barbiturates Screen Not Detected Ur Phencyclidine Scrn Not Detected Ur Amphetamines Screen Not Detected U Benzodiazepines Scrn Not Detected Urine Cocaine Screen Not Detected U Marijuana (THC) Screen Not Detected Influenza Type A (PCR) NEGATIVE Influenza Type B (PCR) NEGATIVE RSV RNA Qual (PCR) NEGATIVE SARS-CoV-2 RNA (RT-PCR) NEGATIVE 08/03/23 08/04/23 08/04/23 21:37 03:40 05:29 WBC 5.0 RBC 4.05 L Hgb 13.1 Hct 37.7 MCV 93.1 MCH 32.3 MCHC 34.7 RDW 11.9 Plt Count 249 MPV 8.6 L Immature Gran % (Auto) 0.0 Neut % (Auto) 42.1 L Lymph % (Auto) 48.2 H Bradford % (Auto) 7.1 Eos % (Auto) 2.0 Baso % (Auto) 0.6 Lymph # (Auto) 2.4 Bradford # (Auto) 0.4 Eos # (Auto) 0.1 Baso # (Auto) 0.0 Abs Immat Gran (auto) 0.00 Absolute Neuts (auto) 2.1 Absolute Nucleated RBC 0.000 Nucleated RBC % (auto) 0.0 PT INR Sodium 138 Potassium 3.7 Chloride 104 Carbon Dioxide 24 Anion Gap 14 BUN 10 Creatinine 0.80 Estim Creat Clear Calc 69.8 Estimated GFR > 60 Random Glucose 86 Calcium 9.4 Magnesium 2.0 Total Bilirubin AST ALT Alkaline Phosphatase Troponin I High Sens 229.6 H* D 357.4 H* D B-Natriuretic Peptide Total Protein Albumin Lipase TSH Urine Color Urine Appearance Urine pH Ur Specific Lyons Urine Protein Urine Glucose (UA) Urine Ketones Urine Blood Urine Nitrite Ur Leukocyte Esterase Urine RBC Urine WBC Ur Squamous Epith Cells Urine Bacteria Hyaline Casts Urine Opiates Screen Ur Buprenorphine Scrn Ur Oxycodone Screen Urine Methadone Screen Urine Fentanyl Screen Ur Barbiturates Screen Ur Phencyclidine Scrn Ur Amphetamines Screen U Benzodiazepines Scrn Urine Cocaine Screen U Marijuana (THC) Screen Influenza Type A (PCR) Influenza Type B (PCR) RSV RNA Qual (PCR) SARS-CoV-2 RNA (RT-PCR) ECG Interpretation: Hospital EKG with sinus tachycardia at 101/Min; no significant ST-T changes and otherwise unremarkable. Normal PA and corrected QT. EMS EKG shows narrow complex tachycardia in the 200s. The strip itself is compressed but suspect SVT. Imaging Radiologist's impression: Impressions Chest X-Ray 08/03/23 19:46 IMPRESSION: Unremarkable examination. Assessment and Plan (1) SVT (supraventricular tachycardia): Status: Acute Low-dose beta-blockers if she can tolerate. Blood pressure is on the lower side. If recurrent, will need ablation. (2) NSTEMI (non-ST elevated myocardial infarction): Status: Acute No ischemic findings on the EKG but she did have chest pain. Troponin levels 13.6, 229 and 357. Treat as NSTEMI. Start IV heparin drip. Aspirin. Statins. Currently, she feels fine. Echocardiogram. May need diagnostic cardiac catheterization. Plan Discussed with cyndee at the bedside. Discussed with about the plan. Procedures Date of Service Date of Service: 08/04/23
--- NOTE | 2023-08-04 09:50 | PC.NURSE ---
critical lab value of troponin of [address] dia notified at this time. plan of care ongoing.
[2023-08-04 10:05] LABS: Cholesterol 157 mg/dL (<200); HDL Cholesterol 46 mg/dL (>40); LDL Cholesterol Calculated 81 mg/dL (<100); Triglycerides 154 mg/dL (<150)
[2023-08-04 10:37] LABS: PTT Heparin Drip 32.2 SEC (53-77.9)
[2023-08-04] MEDS: Metoprolol Tartrate 12.5 MG HALFTAB PO (10:39)
[2023-08-04] MEDS: Atorvastatin Calcium 40 MG TABLET PO (10:40)
[2023-08-04] MEDS: Aspirin Enteric Coated 81 MG TABLET.DR PO (10:40)
[2023-08-04] MEDS: Heparin Sodium,Porcine/1/2NS 25,000 UNIT/250 ML IV.SOLN 8.03 UNIT IVCONT (10:46)
--- NOTE | 2023-08-04 10:49 | PC.NURSE ---
medication administered per provider order. heparin infusion started per [facility] protocol. infusion running at 12u/kg/h at this time. PTT heparin drip lab ordered [id number]. family bedside at this time. plan of care ongoing.
--- NOTE | 2023-08-04 11:06 | PC.NURSE ---
admission worksheet complete. transport notified at this time.
[2023-08-04] MEDS: Escitalopram Oxalate 20 MG TABLET PO (12:09)
[2023-08-04] MEDS: buPROPion HCl XL 300 MG TAB.ER.24H PO (12:09)
[2023-08-04] MEDS: ALPRAZolam 0.25 MG TABLET PO (12:11)
--- NOTE | 2023-08-04 12:15 | P.PNIM_ITS ---
Subjective Subjective Date of Service: 08/04/23 Interval History: Being followed for near-syncope and SVT. 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 Review of Systems All other system are reviewed and are negative. Physical Exam 2 Vital Signs: Vital Signs: Last Vital Signs Temp 98.1 F 08/04/23 10:48 Pulse 75 08/04/23 10:48 Resp 16 08/04/23 10:48 BP 127/62 08/04/23 10:48 Pulse Ox 97 08/04/23 10:48 O2 Del Method Room Air 08/04/23 10:48 BMI result Body Mass Index 27.0 Const: Other: General awake alert x3, in no acute distress. Anicteric sclera Neck supple no JVD. CVS regular rate rhythm, Respiratory lungs clear to auscultation, no respiratory distress, no wheeze, no rhonchi. Gastrointestinal abdomen soft, non tender, bowel sounds audible, Extremities no edema. Neuro moving all 4 extremity, alert oriented x3, dysarthria. Skin no rash Objective Data Active Medications Acetaminophen (Acetaminophen 325 Mg Tablet) 975 mg PO Q6H PRN PRN Reason: Pain, Mild (Pain Scale 1-3) Alprazolam (Alprazolam 0.25 Mg Tablet) 0.25 mg PO DAILY PRN PRN Reason: Anxiety Last Admin: 08/04/23 12:11 Dose: 0.25 mg Documented By: GENET Aspirin (Aspirin Enteric Coated 81 Mg Tablet.) 81 mg PO DAILY [facility] Last Admin: 08/04/23 10:40 Dose: 81 mg Documented By: BIANCA Atorvastatin Calcium (Atorvastatin Calcium 40 Mg Tablet) 40 mg PO DAILY [facility] Last Admin: 08/04/23 10:40 Dose: 40 mg Documented By: BIANCA Bupropion HCl (Bupropion Hcl Xl 300 Mg Tab.Er.24h) 300 mg PO DAILY [facility] Last Admin: 08/04/23 12:09 Dose: 300 mg Documented By: GENET Escitalopram Oxalate (Escitalopram Oxalate 20 Mg Tablet) 20 mg PO DAILY [facility] Last Admin: 08/04/23 12:09 Dose: 20 mg Documented By: GENET Heparin Sodium (Porcine) (Heparin Sodium,Porcine 5,000 Unit/Ml Vial) 2,700 unit 40 unit/kg (2700 unit) IVPUSH PROTOCOL BOLUS PRN; Protocol PRN Reason: 40 unit/kg - Heparin Protocol Heparin Sodium (Porcine) (Heparin Sodium,Porcine 5,000 Unit/Ml Vial) 5,400 unit 80 unit/kg (5400 unit) IVPUSH PROTOCOL BOLUS PRN; Protocol PRN Reason: 80 unit/kg - Heparin Protocol Heparin Sodium/Sodium Chloride (Heparin Sodium,Porcine/1/2ns) 25,000 unit in 250 mls @ 0 mls/hr IVCONT .Q0M [facility]; Protocol Last Admin: 08/04/23 10:46 Dose: 12 units/kg/hr, 8.03 mls/hr Documented By: BIANCA Co-signed By: ISATU Melatonin (Melatonin 3 Mg Tablet) 6 mg PO BEDTIME PRN PRN Reason: Insomnia Last Admin: 08/04/23 05:22 Dose: 6 mg Documented By: GATITO Metoprolol Tartrate (Metoprolol Tartrate 12.5 Mg Halftab) 12.5 mg PO BID [facility]; Protocol Last Admin: 08/04/23 10:39 Dose: 12.5 mg Documented By: BIANCA Sodium Chloride (0.9 % Sodium Chloride Flush 3 Ml Syringe) [address] [facility] Last Admin: 08/04/23 07:40 Dose: Not Given Documented By: BIANCA Non-Admin Reason: Patient Asleep Labs 08/04/23 05:29 08/04/23 05:29 Labs: Laboratory Results - last 24 hr 08/03/23 08/03/23 08/03/23 19:10 19:11 19:26 MCV 91.9 MCH 32.8 MCHC 35.7 H RDW 12.0 Plt Count 243 MPV 8.5 L Immature Gran % (Auto) 0.2 Neut % (Auto) 46.8 Lymph % (Auto) 44.3 H Smith % (Auto) 6.1 Eos % (Auto) 1.7 Baso % (Auto) 0.9 Lymph # (Auto) 2.0 Smith # (Auto) 0.3 Eos # (Auto) 0.1 Baso # (Auto) 0.0 Abs Immat Gran (auto) 0.01 Absolute Neuts (auto) 2.2 Absolute Nucleated RBC 0.000 Nucleated RBC % (auto) 0.0 PT 12.3 INR 1.0 aPTT Heparin Protocol Anion Gap 18 Estim Creat Clear Calc 68.9 Estimated GFR > 60 Random Glucose 81 Calcium 9.6 Magnesium 1.8 Total Bilirubin 0.8 AST 20 ALT 13 Alkaline Phosphatase 57 Troponin I High Sens 13.6 B-Natriuretic Peptide 22 Total Protein 6.6 Albumin 3.9 Triglycerides Cholesterol LDL Cholesterol, Calc HDL Cholesterol Lipase 43 TSH 1.97 Urine Color Yellow Urine Appearance Clear Urine pH 7.0 Ur Specific Debary <= 1.005 Urine Protein Negative Urine Glucose (UA) Negative Urine Ketones Negative Urine Blood Trace H Urine Nitrite Negative Ur Leukocyte Esterase Moderate (2+) H Urine RBC 0-2 Urine WBC 0-5 Ur Squamous Epith Cells 0-2 Urine Bacteria None Seen Hyaline Casts 0-2 Urine Opiates Screen Not Detected Ur Buprenorphine Scrn Not Detected Ur Oxycodone Screen Not Detected Urine Methadone Screen Not Detected Urine Fentanyl Screen Not Detected Ur Barbiturates Screen Not Detected Ur Phencyclidine Scrn Not Detected Ur Amphetamines Screen Not Detected U Benzodiazepines Scrn Not Detected Urine Cocaine Screen Not Detected U Marijuana (THC) Screen Not Detected Influenza Type A (PCR) NEGATIVE Influenza Type B (PCR) NEGATIVE RSV RNA Qual (PCR) NEGATIVE SARS-CoV-2 RNA (RT-PCR) NEGATIVE 08/03/23 08/04/23 08/04/23 21:37 03:40 05:29 MCV 93.1 MCH 32.3 MCHC 34.7 RDW 11.9 Plt Count 249 MPV 8.6 L Immature Gran % (Auto) 0.0 Neut % (Auto) 42.1 L Lymph % (Auto) 48.2 H Smith % (Auto) 7.1 Eos % (Auto) 2.0 Baso % (Auto) 0.6 Lymph # (Auto) 2.4 Smith # (Auto) 0.4 Eos # (Auto) 0.1 Baso # (Auto) 0.0 Abs Immat Gran (auto) 0.00 Absolute Neuts (auto) 2.1 Absolute Nucleated RBC 0.000 Nucleated RBC % (auto) 0.0 PT INR aPTT Heparin Protocol Anion Gap 14 Estim Creat Clear Calc 69.8 Estimated GFR > 60 Random Glucose 86 Calcium 9.4 Magnesium 2.0 Total Bilirubin AST ALT Alkaline Phosphatase Troponin I High Sens 229.6 H* D 357.4 H* D B-Natriuretic Peptide Total Protein Albumin Triglycerides 154 H Cholesterol 157 LDL Cholesterol, Calc 81 HDL Cholesterol 46 Lipase TSH Urine Color Urine Appearance Urine pH Ur Specific Debary Urine Protein Urine Glucose (UA) Urine Ketones Urine Blood Urine Nitrite Ur Leukocyte Esterase Urine RBC Urine WBC Ur Squamous Epith Cells Urine Bacteria Hyaline Casts Urine Opiates Screen Ur Buprenorphine Scrn Ur Oxycodone Screen Urine Methadone Screen Urine Fentanyl Screen Ur Barbiturates Screen Ur Phencyclidine Scrn Ur Amphetamines Screen U Benzodiazepines Scrn Urine Cocaine Screen U Marijuana (THC) Screen Influenza Type A (PCR) Influenza Type B (PCR) RSV RNA Qual (PCR) SARS-CoV-2 RNA (RT-PCR) 08/04/23 08/04/23 09:03 10:08 MCV MCH MCHC RDW Plt Count MPV Immature Gran % (Auto) Neut % (Auto) Lymph % (Auto) Smith % (Auto) Eos % (Auto) Baso % (Auto) Lymph # (Auto) Smith # (Auto) Eos # (Auto) Baso # (Auto) Abs Immat Gran (auto) Absolute Neuts (auto) Absolute Nucleated RBC Nucleated RBC % (auto) PT INR aPTT Heparin Protocol 32.2 L Anion Gap Estim Creat Clear Calc Estimated GFR Random Glucose Calcium Magnesium Total Bilirubin AST ALT Alkaline Phosphatase Troponin I High Sens 162.0 H* D B-Natriuretic Peptide Total Protein Albumin Triglycerides Cholesterol LDL Cholesterol, Calc HDL Cholesterol Lipase TSH Urine Color Urine Appearance Urine pH Ur Specific Debary Urine Protein Urine Glucose (UA) Urine Ketones Urine Blood Urine Nitrite Ur Leukocyte Esterase Urine RBC Urine WBC Ur Squamous Epith Cells Urine Bacteria Hyaline Casts Urine Opiates Screen Ur Buprenorphine Scrn Ur Oxycodone Screen Urine Methadone Screen Urine Fentanyl Screen Ur Barbiturates Screen Ur Phencyclidine Scrn Ur Amphetamines Screen U Benzodiazepines Scrn Urine Cocaine Screen U Marijuana (THC) Screen Influenza Type A (PCR) Influenza Type B (PCR) RSV RNA Qual (PCR) SARS-CoV-2 RNA (RT-PCR) Assessment and Plan (1) NSTEMI (non-ST elevated myocardial infarction): Status: Acute (2) SVT (supraventricular tachycardia): Status: Acute Plan 58-year-old female was having dinner with friends sitting on a bar stool when developed lightheadedness, followed by heart racing, felt like passing out, flushed, had chest pain and left jaw pain, mild nausea, EMS was called patient was found to be tachycardic consistent with SVT, treated with a received 6 mg IV with returned to normal sinus rhythm, in ED patient noted to have elevated troponin, viral testing was negative EKGs showed sinus tachycardia without acute ischemic changes. Non ST-elevation [place] No recurrent chest pain,Troponin levels 13.6, 229 ,357. case discussed with Cardiology will treat for an ST-elevation [place] with IV heparin, low-dose beta-blockers , Lipitor 40 mg and aspirin. Follow echocardiogram, LDL 81, further testing as per Cardiology Acute SVT Now in normal sinus rhythm if break current cardio recommend ablation TSH 1.97 PTSD continue home medication DVT prophylaxis subQ heparin Full code In my clinical judgment patient need continued inpatient hospitalization for treatment of non ST elevation [place] requiring IV heparin, treatment can not be provided in less acute setting. Quality Stroke Does the patient have a stroke diagnosis?: No VTE Prior VTE?: No VTE Risk Level:: Medical - low VTE Device Contraindication: N/A - Device Ordered VTE Drug Contraindication: Treatment Not Indicated
[2023-08-04] MEDS: traMADoL HCL 50 MG TABLET PO (12:54)
[2023-08-05 00:24] LABS: PTT Heparin Drip 80.7 SEC (53-77.9)
[2023-08-05 03:41] VITALS: BP 108/62; PULSE 66; RESP 18; TEMP 36.5; O2SAT 99
[2023-08-05 06:45] VITALS: BP 119/65; PULSE 59; RESP 20; TEMP 36.6; O2SAT 98
[2023-08-05 07:24] LABS: Hematocrit 40.6 % (37.0-47.0); Hemoglobin 14.1 g/dl (12.0-16.0); Mean Corpuscular HGB Conc 34.7 g/dl (31.0-35.0); Mean Corpuscular Hemoglobin 32.2 pg (27.0-33.0); Mean Corpuscular Volume 92.7 fL (80.0-98.0); Mean Platelet Volume 8.7 fL (9.4-12.3); Platelet Count 261 X10*3/uL (160-400); Red Blood Count 4.38 X10*6/uL (4.20-5.50); White Blood Count 5.4 X10*3/uL (4.8-10.8)
[2023-08-05 07:35] LABS: Prothrombin Time 12.1 SEC (11.1-13.3)
[2023-08-05 07:38] LABS: PTT Heparin Drip 57.4 SEC (53-77.9)
[2023-08-05] MEDS: buPROPion HCl XL 300 MG TAB.ER.24H PO (09:05)
[2023-08-05] MEDS: Metoprolol Tartrate 12.5 MG HALFTAB PO ×2 (09:05→20:29)
[2023-08-05] MEDS: Escitalopram Oxalate 20 MG TABLET PO (09:05)
[2023-08-05] MEDS: Aspirin Enteric Coated 81 MG TABLET.DR PO (09:06)
[2023-08-05] MEDS: ALPRAZolam 0.25 MG TABLET PO (09:06)
[2023-08-05] MEDS: Atorvastatin Calcium 40 MG TABLET PO (09:06)
--- NOTE | 2023-08-05 10:26 | P.PNCA_ITS ---
Subjective Subjective Date of Service: 08/05/23 Interval history: She states she feels okay. No new complaints. No further chest pain or jaw pain. Review of Systems Review of Systems Yes all other systems are reviewed and are negative Constitutional: Reports as per HPI and Reports no additional constitutional complaints Eyes: Reports as per HPI and Denies no additional eye complaints Denies system reviewed and no additional complaints, except as documented and Reports as per HPI Cardiovascular: Reports as per HPI, Reports no additional cardiovascular complaints, Denies acrocyanosis, Denies cool extremities, Denies chest pain, Denies leg edema, Denies lightheadedness, Denies palpitations and Denies dyspnea Respiratory: Reports as per HPI, Denies no additional respiratory complaints and Denies dyspnea Gastrointestinal: Reports as per HPI and Denies no additional gastrointestinal complaints Genitourinary: Reports as per HPI Musculoskeletal: Reports no additional musculoskeletal complaints and Reports as per HPI Skin/Breast: Reports system reviewed and no additional complaints, except as docu Reports system reviewed and no additional complaints, except as documented and Reports as per HPI Psychiatric: Reports no additional psychiatric complaints and Reports as per HPI Endocrine: Reports no additional endocrine complaints, Reports as per HPI and Denies palpitations Hematologic/Lymphatic: Reports no additional hematologic/lymphatic complaints and Reports as per HPI Allergic/Immunologic: Reports no additional allergic/immunologic complaints and Reports as per HPI Physical Exam Vital Signs: Last Vital Signs Temp 97.8 F 08/05/23 06:45 Pulse 59 08/05/23 06:45 Resp 20 08/05/23 06:45 BP 119/65 08/05/23 06:45 Pulse Ox 98 08/05/23 06:45 O2 Del Method Room Air 08/05/23 06:45 BMI result Body Mass Index 27.0 Const General: comfortable and no acute distress Orientation/consciousness: patient oriented x3 HEENT Other: Unremarkable Head: Yes normal to inspection Neck Neck: Yes normal visual inspection Chest Chest palpation & inspection: normal inspection of the chest Resp Auscultation: clear to auscultation bilaterally Cardio Palpation: normal PMI Heart sounds: S1 normal heart sound present, S2 normal heart sound present, no gallops, no murmurs and no rubs GI Palpation (GI): Soft to palpation Back/Spine/Pelvis Other: unremarkable Skin General skin exam: no rashes or lesions noted Neuro General: patient oriented x3 Extrem General: Yes normal to inspection Psych Mental Status: mental status grossly normal Objective Labs and Meds 08/05/23 06:41 08/04/23 05:29 Lab results: Laboratory Results - last 24 hr 08/04/23 08/04/23 08/04/23 10:08 16:55 16:55 WBC RBC Hgb Hct MCV MCH MCHC RDW Plt Count MPV Absolute Nucleated RBC Nucleated RBC % (auto) Hold Purple Top SEE NOTE SEE NOTE PT INR aPTT Heparin Protocol 32.2 L 72.0 D 08/04/23 08/05/23 23:51 06:41 WBC 5.4 RBC 4.38 Hgb 14.1 Hct 40.6 MCV 92.7 MCH 32.2 MCHC 34.7 RDW 12.0 Plt Count 261 MPV 8.7 L Absolute Nucleated RBC 0.000 Nucleated RBC % (auto) 0.0 Hold Purple Top SEE NOTE SEE NOTE PT 12.1 INR 1.0 aPTT Heparin Protocol 80.7 H 57.4 D Progress Note: A&P Assessment and plan (1) SVT (supraventricular tachycardia): Status: Acute Assessment and Plan: Low-dose beta-blockers if she can tolerate. Blood pressure is on the lower side. If recurrent, will need ablation. (2) NSTEMI (non-ST elevated myocardial infarction): Status: Acute Assessment and Plan: Chest/jaw pain initially but then resolved. High sensitive troponins are abnormal. Peak 357. Echocardiogram with basal inferolateral akinesis. Discussed with patient as well as daughter. Recommend diagnostic catheterization. We will transferred to [facility] tomorrow. Continue IV heparin drip and other treatments for my including aspirin and statins. Time Spent With Patient Time: Total time managing care of this patient today ____ minutes. Progress Note: Quality Stroke Does the patient have a stroke diagnosis?: No Procedures Date of Service Date of Service: 08/05/23
[2023-08-05] MEDS: Fluticasone Propionate Nasal 16 GM SPRAY 1 SPRAY NOSTRIL-B (10:27)
[2023-08-05 10:43] VITALS: BP 103/59; PULSE 66; RESP 20; TEMP 36.6; O2SAT 97
[2023-08-05] MEDS: Heparin Sodium,Porcine/1/2NS 25,000 UNIT/250 ML IV.SOLN 6.69 UNIT IVCONT (11:36)
--- NOTE | 2023-08-05 12:27 | HO.PM.IMPN ---
Subjective Subjective Date of Service: 08/05/23 Interval History: No further chest pain since admission. Monitor sinus rhythm sinus Michael Review of Systems Denies chest pain Denies shortness of breath Denies nausea vomiting diarrhea Denies fever chills Physical Exam Vital Signs: Vital Signs: Last Vital Signs Temp 97.8 F 08/05/23 10:43 Pulse 66 08/05/23 10:43 Resp 20 08/05/23 10:43 BP 103/59 L 08/05/23 10:43 Pulse Ox 97 08/05/23 10:43 O2 Del Method Room Air 08/05/23 10:43 BMI result Body Mass Index 27.0 Const: Other: No acute issues overnight Resp: Other: Clear to auscultation bilaterally no rales rhonchi or wheezes Cardio: Other: No S4; positive S1-S2; no S3 murmurs rubs or gallops GI: Other: Soft nontender nondistended normoactive bowel sounds Neuro: Other: Cranial nerves 2-12 grossly intact as tested save left facial symmetry with speech deficit (chronic) motor is 5/5 all extremities sensation is intact cognition appropriate Extrem: Other: No edema bilaterally Objective Data Active Medications Acetaminophen (Acetaminophen 325 Mg Tablet) 975 mg PO Q6H PRN PRN Reason: Pain, Mild (Pain Scale 1-3) Alprazolam (Alprazolam 0.25 Mg Tablet) 0.25 mg PO DAILY PRN PRN Reason: Anxiety Last Admin: 08/05/23 09:06 Dose: 0.25 mg Documented By: GENET Aspirin (Aspirin Enteric Coated 81 Mg Tablet.) 81 mg PO DAILY [facility] Last Admin: 08/05/23 09:06 Dose: 81 mg Documented By: GENET Atorvastatin Calcium (Atorvastatin Calcium 40 Mg Tablet) 40 mg PO DAILY [facility] Last Admin: 08/05/23 09:06 Dose: 40 mg Documented By: GENET Bupropion HCl (Bupropion Hcl Xl 300 Mg Tab.Er.24h) 300 mg PO DAILY [facility] Last Admin: 08/05/23 09:05 Dose: 300 mg Documented By: GENET Escitalopram Oxalate (Escitalopram Oxalate 20 Mg Tablet) 20 mg PO DAILY [facility] Last Admin: 08/05/23 09:05 Dose: 20 mg Documented By: GENET Fluticasone Propionate (Fluticasone Propionate Nasal [address] [place]) 1 spray NOSTRIL-B DAILY [facility] Last Admin: 08/05/23 10:27 Dose: 1 spray Documented By: GENET Heparin Sodium (Porcine) (Heparin Sodium,Porcine 5,000 Unit/Ml Vial) 2,700 unit 40 unit/kg (2700 unit) IVPUSH PROTOCOL BOLUS PRN; Protocol PRN Reason: 40 unit/kg - Heparin Protocol Heparin Sodium (Porcine) (Heparin Sodium,Porcine 5,000 Unit/Ml Vial) 5,400 unit 80 unit/kg (5400 unit) IVPUSH PROTOCOL BOLUS PRN; Protocol PRN Reason: 80 unit/kg - Heparin Protocol Heparin Sodium/Sodium Chloride (Heparin Sodium,Porcine/1/2ns) 25,000 unit in 250 mls @ 0 mls/hr IVCONT .Q0M [facility]; Protocol Last Admin: 08/05/23 11:36 Dose: 10 units/kg/hr, 6.69 mls/hr Documented By: GENET Co-signed By: RALPH Melatonin (Melatonin 3 Mg Tablet) 6 mg PO BEDTIME PRN PRN Reason: Insomnia Last Admin: 08/04/23 05:22 Dose: 6 mg Documented By: GATITO Metoprolol Tartrate (Metoprolol Tartrate 12.5 Mg Halftab) 12.5 mg PO BID [facility]; Protocol Last Admin: 08/05/23 09:05 Dose: 12.5 mg Documented By: GENET Sodium Chloride (0.9 % Sodium Chloride Flush 3 Ml Syringe) [facility] Last Admin: 08/05/23 09:07 Dose: Not Given Documented By: GENET Non-Admin Reason: IV Running Tramadol HCl (Tramadol Hcl 50 Mg Tablet) 50 mg PO BID PRN PRN Reason: Moderate Pain (Scale Score 5-6) Last Admin: 08/04/23 12:54 Dose: 50 mg Documented By: GENET Labs 08/05/23 06:41 08/04/23 05:29 Labs: Laboratory Results - last 24 hr 08/04/23 08/04/23 08/04/23 16:55 16:55 23:51 MCV MCH MCHC RDW Plt Count MPV Absolute Nucleated RBC Nucleated RBC % (auto) Hold Purple Top SEE NOTE SEE NOTE SEE NOTE PT INR aPTT Heparin Protocol 72.0 D 80.7 H 08/05/23 06:41 MCV 92.7 MCH 32.2 MCHC 34.7 RDW 12.0 Plt Count 261 MPV 8.7 L Absolute Nucleated RBC 0.000 Nucleated RBC % (auto) 0.0 Hold Purple Top SEE NOTE PT 12.1 INR 1.0 aPTT Heparin Protocol 57.4 D Assessment and Plan (1) NSTEMI (non-ST elevated myocardial infarction): Status: Acute (2) SVT (supraventricular tachycardia): Status: Acute Plan 58-year-old female was having dinner with friends sitting on a bar stool when developed lightheadedness, followed by heart racing, felt like passing out, flushed, had chest pain and left jaw pain, mild nausea, EMS was called patient was found to be tachycardic consistent with SVT, treated with a received 6 mg IV with returned to normal sinus rhythm, in ED patient noted to have elevated troponin, viral testing was negative EKGs showed sinus tachycardia without acute ischemic changes. 1.Non ST-elevation [place] -IV heparin/low-dose beta-blockers/ Lipitor 40 mg/aspirin. -echo with normal LV function -to [facility] in a.m. for diagnostic catheterization 2.Acute SVT -remains in sinus rhythm -tolerant of therapies heparin Full code In my clinical judgment patient need continued inpatient hospitalization for treatment of non ST elevation [place] requiring IV heparin, treatment can not be provided in less acute setting. Quality Stroke Does the patient have a stroke diagnosis?: No VTE Prior VTE?: No VTE Risk Level:: Medical - low VTE Device Contraindication: N/A - Device Ordered VTE Drug Contraindication: Treatment Not Indicated
[2023-08-05 14:06] LABS: PTT Heparin Drip 59.7 SEC (53-77.9)
[2023-08-05 14:20] LABS: Troponin-I High Sensitivity 30.5 ng/L (<3.5-17.0)
--- NOTE | 2023-08-05 14:20 | MHC.CM.PN ---
CM MET WITH PT AND DAUGHTER, PT DEFERRED TO DAUGHTER FOR MOST QUESTIONS DUE TO IMPAIRED SPEECH THEY REPORT THE PT LIVES ALONE IN [place], HOWEVER SHE HAS BEEN STAYING HERE WITH HER DAUGHTER WHILE HER DAUGHTER ATTENDS SCHOOL PT IS INDEPENDENT WITH ALL CARE, HAS NO DME AND NO SERVICES SHE SAYS SHE DOES HAVE A HCP NAMING HER DAUGHTER HER AGENT, COPY REQUESTED PT REPORTS SHE HAS A PCP IN [place], AND LOCALLY SEES [facility] DELIVERED DCP: HOME NO SERVICES VIA PRIVATE TRANSPORT
[2023-08-05 15:15] VITALS: BP 101/58; PULSE 66; RESP 20; TEMP 36.5; O2SAT 100
[2023-08-05] MEDS: Acetaminophen 325 MG TABLET 975 MG PO (17:20)
[2023-08-05 19:08] VITALS: BP 103/57; PULSE 58; RESP 16; TEMP 37.2; O2SAT 97
[2023-08-05 23:09] VITALS: BP 94/55; PULSE 60; RESP 16; TEMP 36.3; O2SAT 99
[2023-08-06 03:10] VITALS: BP 106/55; PULSE 59; RESP 16; TEMP 36.6; O2SAT 100
[2023-08-06 07:35] VITALS: BP 114/61; PULSE 62; RESP 18; TEMP 36.4; O2SAT 99
[2023-08-06 08:03] LABS: PTT Heparin Drip 56.9 SEC (53-77.9)
[2023-08-06] MEDS: Aspirin Enteric Coated 81 MG TABLET.DR PO (08:42)
[2023-08-06] MEDS: Atorvastatin Calcium 40 MG TABLET PO (08:43)
[2023-08-06] MEDS: buPROPion HCl XL 300 MG TAB.ER.24H PO (08:43)
[2023-08-06] MEDS: Metoprolol Tartrate 12.5 MG HALFTAB PO (08:44)
[2023-08-06] MEDS: Escitalopram Oxalate 20 MG TABLET PO (08:44)
[2023-08-06] MEDS: ALPRAZolam 0.25 MG TABLET PO (08:49)
--- NOTE | 2023-08-06 10:22 | PM.PNCARD ---
Subjective Subjective Date of Service: 08/06/23 Interval history: She states she feels good. No further chest pains. Review of Systems Review of Systems Yes all other systems are reviewed and are negative Constitutional: Reports as per HPI and Reports no additional constitutional complaints Eyes: Reports as per HPI and Denies no additional eye complaints Denies system reviewed and no additional complaints, except as documented and Reports as per HPI Cardiovascular: Reports as per HPI, Reports no additional cardiovascular complaints, Denies acrocyanosis, Denies cool extremities, Denies chest pain, Denies leg edema, Denies lightheadedness, Denies palpitations and Denies dyspnea Respiratory: Reports as per HPI, Denies no additional respiratory complaints and Denies dyspnea Gastrointestinal: Reports as per HPI and Denies no additional gastrointestinal complaints Musculoskeletal: Reports no additional musculoskeletal complaints and Reports as per HPI Skin/Breast: Reports system reviewed and no additional complaints, except as docu Reports system reviewed and no additional complaints, except as documented and Reports as per HPI Psychiatric: Reports no additional psychiatric complaints and Reports as per HPI Endocrine: Reports no additional endocrine complaints, Reports as per HPI and Denies palpitations Hematologic/Lymphatic: Reports no additional hematologic/lymphatic complaints and Reports as per HPI Allergic/Immunologic: Reports no additional allergic/immunologic complaints and Reports as per HPI Physical Exam Vital Signs: Last Vital Signs Temp 97.6 F 08/06/23 07:35 Pulse 62 08/06/23 07:35 Resp 18 08/06/23 07:35 BP 114/61 08/06/23 07:35 Pulse Ox 99 08/06/23 07:35 O2 Del Method Room Air 08/06/23 07:35 BMI result Body Mass Index 27.0 Const General: comfortable and no acute distress Orientation/consciousness: patient oriented x3 HEENT Other: Unremarkable Head: Yes normal to inspection Neck Neck: Yes normal visual inspection Chest Chest palpation & inspection: normal inspection of the chest Resp Auscultation: clear to auscultation bilaterally Cardio Palpation: normal PMI Heart sounds: S1 normal heart sound present, S2 normal heart sound present, no gallops, no murmurs and no rubs GI Palpation (GI): Soft to palpation Back/Spine/Pelvis Other: unremarkable Skin General skin exam: no rashes or lesions noted Neuro General: patient oriented x3 Extrem General: Yes normal to inspection Psych Mental Status: mental status grossly normal Objective Labs and Meds 08/05/23 06:41 08/04/23 05:29 Lab results: Laboratory Results - last 24 hr 08/05/23 08/06/23 13:51 07:13 aPTT Heparin Protocol 59.7 56.9 Troponin I High Sens 30.5 H D Progress Note: A&P Assessment and plan (1) SVT (supraventricular tachycardia): Status: Acute Assessment and Plan: Low-dose beta-blockers if she can tolerate. Blood pressure is on the lower side. If recurrent, will need ablation. (2) NSTEMI (non-ST elevated myocardial infarction): Status: Acute Assessment and Plan: Chest/jaw pain initially but then resolved. High sensitive troponins are abnormal. Peak 357. Echocardiogram with basal inferolateral akinesis. Discussed with patient as well as daughter yesterday. Currently, she is being treated as NSTEMI. Will transfer today to [facility] for cardiac catheterization, probably tomorrow. Remains on IV heparin drip, aspirin, statins. Small dose of beta-blockers as she also has lowish blood pressure. Time Spent With Patient Time: Total time managing care of this patient today ____ minutes. Progress Note: Quality Stroke Does the patient have a stroke diagnosis?: No Procedures Date of Service Date of Service: 08/06/23
[2023-08-06] MEDS: Acetaminophen 325 MG TABLET 975 MG PO (10:51)
[2023-08-06 11:10] VITALS: BP 95/55; PULSE 63; RESP 18; TEMP 36.4; O2SAT 100
--- NOTE | 2023-08-06 11:15 | PM.DS ---
DS: Providers Provider Date of Service: 08/06/23 Date of admission: 08/04/23 13:35 Date of discharge: 08/06/23 Primary care physician: Unknown Physician Consults: 08/03/23 23:51 Consult to Cardiology Routine Consulting Provider: [facility] [place] Cardiovascular Services Reason for consultation: SVT Has provider been notified: Yes DS: Diagnosis Discharge Diagnosis (1) SVT (supraventricular tachycardia): Status: Acute (2) NSTEMI (non-ST elevated myocardial infarction): Status: Acute DS: Summary Hospital Course Hospital Course: 58 years old woman with PMHx significant for TBI and residual speech difficulty was brought to the emergency department via ambulance after she started to experience dizziness and palpitations while she was having dinner at a restaurant. Patient felt like she was about to pass out and was having pain to jaw. Her friend who was at bedside provided most of the HPI and stated that when the ambulance came the patient looks quite pale. Apple watch was showing that her heart rate was very. EMS found her to have marked tachycardia consistent with SVT. Vasovagal maneuvers were attempted without success. Subsequently she received treatment with adenosine 6 mg IV X1. After receiving treatment with adenosine her heart rate came back to normal sinus rhythm. On evaluation the patient was asymptomatic. Denied any gastrointestinal or genitourinary symptoms. Prior to symptoms the patient had couple of sips of alcoholic beverage. Patient denies history of cardiac arrhythmia or heart disease. Hospital Course Admitted to telemetry where monitor failed to demonstrate any further episodes of SVT. Patient had positive enzymes with negative EKGs and was therefore started on heparin drip. Enzymes peaked at 357 on 08/03. Repeat enzymes 5 4 with 30.5. Echo demonstrated LVEF between 65 and 70% with a basal inferior lateral segment akinesis. Seen by Cardiology who recommended transfer to [facility] for diagnostic catheterization. At this time she is medically stable for same. She will be transported on heparin drip Time Attestation Discharge Coordination Time (in mins): 35 Quality: Safe Use of Opioids Does Pt have an Active Cancer Diagnosis on the Problem List?: No Quality: Stroke Does the patient have a stroke diagnosis?: No Physical Exam Vital Signs: Vital Signs: Last Vital Signs Temp 97.6 F 08/06/23 11:10 Pulse 63 08/06/23 11:10 Resp 18 08/06/23 11:10 BP 95/55 L 08/06/23 11:10 Pulse Ox 100 08/06/23 11:10 O2 Del Method Room Air 08/06/23 11:10 BMI result Body Mass Index 27.0 Const: Other: No acute issues overnight Resp: Other: Clear to auscultation bilaterally no rales rhonchi or wheezes Cardio: Other: No S4; positive S1-S2; no S3 murmurs rubs or gallops GI: Other: Soft nontender nondistended normoactive bowel sounds Neuro: Other: Cranial nerves 2-12 grossly intact as tested save left facial symmetry with speech deficit (chronic) motor is 5/5 all extremities sensation is intact cognition appropriate Extrem: Other: No edema bilaterally DS: Data Data Completed and Pending Labs on day of discharge: Laboratory Results - last 24 hr 08/05/23 08/06/23 13:51 07:13 aPTT Heparin Protocol 59.7 56.9 Troponin I High Sens 30.5 H D Discharge Plan Discharge Anticipated Discharge Date/Time: 08/06/23 11:09 Patient Disposition: er Acute Care Hospital Discharge Diagnosis: NSTEMI Referrals: Physician,Unknown J [Primary Care Provider] - 1 Week Discharge Medications: New atorvastatin 40 mg Tablet 40 mg PO DAILY Qty: 30 0RF heparin (porcine) 5,000 unit/mL Solution 5,400 unit IVPUSH PROTOCOL BOLUS PRN (Reason: 80 Unit/Kg - Heparin Protocol) Qty: 100 0RF heparin (porcine) 5,000 unit/mL Solution 2,700 unit IVPUSH PROTOCOL BOLUS PRN (Reason: 40 Unit/Kg - Heparin Protocol) Qty: 100 0RF heparin(porcine) in 0.45% NaCl 25,000 unit/250 mL Parenteral Solution 25,000 unit continuous IV infusion .Q0M Qty: 100 0RF aspirin 81 mg Tablet,Delayed Release (Dr/Ec) 81 mg PO DAILY Qty: 30 0RF Continued tramadol 50 mg Tablet 50 mg PO BID PRN (Reason: Moderate Pain (Scale Score 5-6)) escitalopram oxalate 20 mg Tablet 20 mg PO DAILY bupropion HCl 300 mg Tablet Extended Release 24 Hr 300 mg PO DAILY alprazolam 0.25 mg Tablet,Disintegrating 0.25 mg PO DAILY PRN (Reason: Anxiety) Discontinued atorvastatin 10 mg Tablet 10 mg PO DAILY Discharge Orders: Discharge Order (Routine); Ordered 08/06/23 Ordered By: Sukumar Mercado Diet: Advance to usual diet Activity on Discharge: As tolerated Stand Alone Forms: Patient Portal Discharge page Print Language: Yoruba Care Plan Goals: Transfer to [facility] for diagnostic catheterization Health Concerns: Continue heparin drip as ordered Plan of Treatment: As per receiving cardiology team Assessment: See discharge summary
--- NOTE | 2023-08-06 12:19 | MHC.CM.PN ---
PT TRANSFERRING TO [facility]
[2023-08-06] MEDS: Heparin Sodium,Porcine/1/2NS 25,000 UNIT/250 ML IV.SOLN 6.69 UNIT IVCONT (12:36)
[2023-08-06 15:07] VITALS: BP 100/47; PULSE 71; RESP 20; TEMP 36.5; O2SAT 100
== END 2023-08-06 17:09 | disposition short-term general hospital (02) | DRG 190 ==
LOC: HO.ED 22:10 → HO.EDOVER 23:53 → HO.IMC 08-04 10:18
PROVIDERS: Hospitalist; Nurse Practitioner Family; Admitting Provider Internal Medicine; Emergency Provider Emergency Medicine; PCP Internal Medicine; Visit Provider Hospitalist
DX: I21.4 Non-ST elevation (NSTEMI) myocardial infarction (principal); S06.9XAS Unspecified intracranial injury with loss of consciousness status unknown, sequela; I47.10 Supraventricular tachycardia, unspecified; F43.10 Post-traumatic stress disorder, unspecified; X58.XXXS Exposure to other specified factors, sequela; R47.9 Unspecified speech disturbances; Z20.822 Contact with and (suspected) exposure to COVID-19; Z87.820 Personal history of traumatic brain injury; Z79.899 Other long term (current) drug therapy
CPT/HCPCS: 0241U; 36415; 71046; 80048; 80053; 80061; 80307; 81001; 81003; 83690; 83735; 83880; 84443; 84484; 85025; 85027; 85610; 85730; 93005; 93306; 99285; J1644; Q9957

== ENCOUNTER 2023-08-03 23:48 | Outpatient (BNV) | payer BC, MEDICARE, SELFPAY | END 2023-08-04 07:00 | PROVIDERS: Admitting Provider Internal Medicine; Emergency Provider Emergency Medicine; Visit Provider Internal Medicine | DX: I36.1 Nonrheumatic tricuspid (valve) insufficiency (principal) | CPT/HCPCS: 93306 ==

== ENCOUNTER → 2023-08-03 23:48 | Outpatient (BNV) | payer BC, MEDICARE, SELFPAY | PROVIDERS: Admitting Provider Internal Medicine; Emergency Provider Emergency Medicine; Visit Provider Internal Medicine | DX: I21.4 Non-ST elevation (NSTEMI) myocardial infarction (principal); I47.10 Supraventricular tachycardia, unspecified | CPT/HCPCS: 93010; 99233; 99253 ==

== ENCOUNTER → 2023-08-03 23:48 | Outpatient (BNV) | payer BC, MEDICARE, SELFPAY | PROVIDERS: Admitting Provider Internal Medicine; Emergency Provider Emergency Medicine; Visit Provider Internal Medicine | DX: I47.10 Supraventricular tachycardia, unspecified (principal); I21.4 Non-ST elevation (NSTEMI) myocardial infarction | CPT/HCPCS: 99222; 99233; 99239 ==

== ENCOUNTER → 2023-08-07 23:59 | Outpatient (BNV) | payer BC, MEDICARE, SELFPAY | PROVIDERS: PCP Internal Medicine; Visit Provider Internal Medicine Cardiovascular Disease | DX: I21.4 Non-ST elevation (NSTEMI) myocardial infarction (principal) | CPT/HCPCS: 93458; 99152 ==

== ENCOUNTER → 2023-09-13 13:55 | Outpatient (BNVA) | payer BC, MEDICARE, SELFPAY | PROVIDERS: PCP Internal Medicine; Visit Provider Nurse Practitioner | DX: Z13.89 Encounter for screening for other disorder (principal) ==